=== PATIENT | female | born 1955 | race African-American/Black ===

== ENCOUNTER 2016-11-13 10:37 | Day surgery (SDC) | payer OTHER ==
[~2016-11-13] VITALS: Ht 165.1 cm; Wt 84.5 kg
[2016-11-13] VITALS (8 sets, daily range): BP systolic 130–161; BP diastolic 76–90; PULSE 97–105; RESP 16–18; Ht 165.1 cm; Wt 84.5 kg
[2016-11-13] MEDS ORDERED: HYD25 PO (11:38)
[2016-11-13] MEDS ORDERED: AMLO-147 PO (11:38)
[2016-11-13] MEDS ORDERED: TOPI-44 PO (11:38)
[2016-11-13] MEDS ORDERED: MULT-853 PO (11:39)
[2016-11-13] MEDS ORDERED: LIDOCAINE 1% (STERILE-PAK) 30 ML INJ ONE (12:43)
[2016-11-13] MEDS ORDERED: POVIDONE IODINE 10% 28.4 GM OINT ONE (12:43)
[2016-11-13] MEDS ORDERED: BUPIVACAINE 0.5% (SDV) 30 ML INJ ONE (12:43)
[2016-11-13] MEDS ORDERED: DEXAMETHASONE 4 MG/ML 1 ML INJ ONE (12:43)
--- NOTE | 2016-11-13 12:53 | HPN ---
Date/Time of Note Date/Time of Note DATE: 11/13/16 TIME: 12:53 Interval H&P Admission Note Pt. seen H&P reviewed: No system changes MARK GUERRERO DPM Nov 13, 2016 12:53
[2016-11-13] MEDS ORDERED: PROPOFOL 20 ML ONE (13:01)
[2016-11-13] MEDS ORDERED: KETOROLAC 30 MG INJ ONE (13:01)
[2016-11-13] MEDS ORDERED: METOCLOPRAMIDE 10 MG INJ ONE (13:02)
[2016-11-13] MEDS ORDERED: FENTAnyl 50 MCG/ML VIAL ONE (13:02)
[2016-11-13] MEDS ORDERED: MIDAZOLAM 1 MG/ML 2 ML INJ ONE (13:02)
[2016-11-13] MEDS ORDERED: CEFAZOLIN 1 GM INJ ONE (13:14)
[2016-11-13] MEDS ORDERED: OXYCODONE/ACETAMINOPHEN (5/325) TAB PO PRN ×2 (13:30)
[2016-11-13] MEDS ORDERED: ONDANSETRON 4 MG INJ IV PRN (13:30)
[2016-11-13] MEDS ORDERED: MEPERIDINE 25 MG INJ IV PRN (13:30)
[2016-11-13] MEDS ORDERED: HYDROmorphONE (0.2 MG/ML) 10ML SYG IV PRN ×3 (13:30)
[2016-11-13] MEDS ORDERED: DIPHENHYDRAMINE 50 MG INJ IV PRN (13:30)
[2016-11-13] MEDS ORDERED: METOCLOPRAMIDE 10 MG INJ IV PRN (13:30)
[2016-11-13] MEDS ORDERED: POLYMYXIN/BACITRACIN 1L IRRIG IRR ONE (13:57)
[2016-11-13] MEDS ORDERED: POLYMYXIN/BACITRACIN 1L IRRIG ONE (14:17)
--- NOTE | 2016-11-13 14:20 | PREOPHP ---
DATE OF ADMISSION: 11/13/2016 HISTORY OF PRESENT ILLNESS: The patient is being admitted to the hospital for elective foot surgery, palliative treatment unsuccessful. The patient has been explained surgery, complications, alternatives and elected to have elective foot surgery. The patient points to the fifth metatarsal on the left foot. ALLERGIES: THE PATIENT DENIES ANY TO ANY MEDICINE. MEDICATIONS: She is taking 4 medicines: 1. Centrum Sliver. 2. Hydrochlorothiazide. 3. Amlodipine. 4. Albuterol Sulfate REVIEW OF SYSTEMS: Negative for heart, lung, liver, kidney, thyroid. Negative for diabetes. SOCIAL HISTORY: Negative for smoking. Occasional alcohol. See any other pertinent history and upper extremity physical exam by Dr. Ezekiel Castillo. PHYSICAL EXAMINATION: LOWER EXTREMITIES: Shows a DP and PT that are equal and regular. NEUROLOGICAL: Negative for pathology. DERMATOLOGICAL: Negative for pathology. MUSCULOSKELETAL/X-RAYS FINDINGS: Show and enlarged fifth metatarsal on the left foot. FINAL DIAGNOSIS: Deformed fifth metatarsal head, left foot. Dictated By: MARK SOMERS/FRANCISCO Conf#: [id number] DID#: [id number] MTDD
--- NOTE | 2016-11-13 14:42 | OPR ---
DATE OF OPERATION: 11/13/2016 PREOPERATIVE DIAGNOSIS: Deformed fifth metatarsal head on the left foot. POSTOPERATIVE DIAGNOSIS: Deformed fifth metatarsal head on the left foot. PROCEDURE PERFORMED: Partial ostectomy, fifth metatarsal, left foot. SURGEON: Mark Perez DPM DESCRIPTION OF PROCEDURE: The patient was brought to the surgical suite, placed in a supine position. THE Patient was under general anesthesia with cardiac monitoring and a tourniquet on the mid thigh and a sterile prep and drape and findings consistent with the pre and postoperative diagnosis. First incision was a dorsal medial longitudinal incision over the fifth metatarsophalangeal joint. Using sharp and blunt dissection, the incision was carried deep. The extensor expansion was severed, and the head of the fifth metatarsal was freed of its attachment and resected at its surgical neck. The area was cleansed and rasped smooth and cleansed again, and the preoperative condition having been relieved, the area was then subcutaneously coaptated using 3-0 Vicryl and the skin was coapted using 5-0 nylon. The area was injected with 0.5% Marcaine and Decadron to prolong anesthesia, and a dressing of 1/2-inch Steri-Strips, 4x4's impregnated with Betadine solution and Sandy with an outer layer of Coban made into a semi-compressive dressing. The patient tolerated surgery well and was returned to recovery room in satisfactory condition. Dictated By: MARK SOMERS/FRANCISCO Conf#: [id number] DID#: [id number] MTDD
== END 2016-11-13 15:45 | disposition home or self-care (01) ==
LOC: SDS 10:37
PROVIDERS: ATTEND Podiatrist
DX: M20.5X2 Other deformities of toe(s) (acquired), left foot (principal); I10 Essential (primary) hypertension
CPT/HCPCS: 28110; 88304; 88311; J0690; J1100; J1885; J2250; J2765; J3010; L3260; Z7512; Z7610

== ENCOUNTER 2017-02-05 10:19 | Day surgery (SDC) | payer OTHER ==
[2017-02-05] VITALS (11 sets, daily range): BP systolic 125–160; BP diastolic 76–101; PULSE 84–112; RESP 14–31; Ht 165.1 cm; Wt 85.0 kg
[~2017-02-05] VITALS: Ht 165.1 cm; Wt 85.0 kg
[~2017-02-05 10:19] MED LIST: AMLO-147 PO; HYD25 PO; MULT-853 PO; TOPI-44 PO
--- NOTE | 2017-02-05 12:51 | HPN ---
Date/Time of Note Date/Time of Note DATE: 02/05/17 TIME: 12:50 Interval H&P Admission Note Pt. seen H&P reviewed: No system changes MARK GUERRERO DPM Feb 05, 2017 12:51
[2017-02-05] MEDS ORDERED: BUPIVACAINE 0.5%/EPI (SDV) 10 ML INJ ONE (12:53)
[2017-02-05] MEDS ORDERED: LIDOCAINE 1% (MPF) 10 ML INJ ONE (12:53)
[2017-02-05] MEDS ORDERED: BUPIVACAINE 0.5% (SDV) 30 ML INJ ONE (12:54)
[2017-02-05] MEDS ORDERED: MIDAZOLAM 1 MG/ML 2 ML INJ ONE (13:03)
[2017-02-05] MEDS ORDERED: LIDOCAINE 2% (SDV) 5 ML INJ ONE (13:03)
[2017-02-05] MEDS ORDERED: PROPOFOL 20 ML ONE (13:03)
[2017-02-05] MEDS ORDERED: LIDOCAINE 1% (MPF) 10 ML INJ INJ ONE (13:10)
[2017-02-05] MEDS ORDERED: CEFAZOLIN 1 GM INJ ONE (13:13)
[2017-02-05] MEDS ORDERED: FAMOTIDINE 20 MG INJ ONE (13:16)
[2017-02-05] MEDS ORDERED: DEXAMETHASONE 4 MG/ML 1 ML INJ ONE (13:16)
[2017-02-05] MEDS ORDERED: ONDANSETRON 4 MG INJ ONE (13:16)
[2017-02-05] MEDS ORDERED: FENTAnyl 50 MCG/ML VIAL ONE (13:18)
[2017-02-05] MEDS ORDERED: BUPIVACAINE 0.5% 30 ML VIAL INJ ONE (13:35)
--- NOTE | 2017-02-05 14:08 | PREOPHP ---
DATE OF ADMISSION: 02/05/2017 HISTORY OF PRESENT ILLNESS: The patient is being admitted to the hospital for elective foot surgery, palliative treatment unsuccessful. Patient has been explained surgery, complications, and alternatives and elected to have elective foot surgery. The patient has pain between the first and second toes on the right foot. ALLERGIES: THE PATIENT DENIES ANY TO ANY MEDICINE. MEDICATIONS: She is taking 1. Centrum. 2. Hydrochlorothiazide. 3. Ventolin 4. Albuterol sulfate. REVIEW OF SYSTEMS: Negative heart, lung, liver, kidney, or thyroid. Negative diabetes. SOCIAL HISTORY: Negative for smoking and occasional alcohol. PHYSICAL EXAMINATION: See any pertinent history in upper extremity physical exam by the [facility]. LOWER EXTREMITIES: Show DP and PT equal and regular. NEUROLOGICAL: Negative for pathology. DERMATOLOGIC: Shows a lesion medial aspect 2nd digit and lateral aspect hallux. MUSCULOSKELETAL: Shows exostosis lateral aspect hallux and medial aspect 2nd digit. FINAL DIAGNOSES: 1. Exostosis medial aspect 2nd digit, right. 2. Exostosis lateral aspect hallux, right. Dictated By: MARK SOMERS/FRANCISCO Conf#: [id number] DID#: [id number] OMEGA
[2017-02-05] MEDS ORDERED: HYDROmorphONE (0.2 MG/ML) 10ML SYG IV PRN ×3 (14:30)
== END 2017-02-05 16:20 | disposition home or self-care (01) ==
LOC: SDS 10:19
PROVIDERS: ATTEND Podiatrist
DX: D16.31 Benign neoplasm of short bones of right lower limb (principal); I10 Essential (primary) hypertension
CPT/HCPCS: 28124; 88304; J1100; J1170; J2250; J2405; J3010; Z7512; Z7610; J0690